=== PATIENT | female | born 1990 | race Caucasian/White ===

== ENCOUNTER 2016-09-05 11:04 | Outpatient (CLI) | payer BC | END 2016-09-05 11:05 | disposition home or self-care (01) | DX: R42 Dizziness and giddiness (principal); R55 Syncope and collapse ==

== ENCOUNTER 2016-11-17 15:08 | Emergency (ER) | payer BC ==
[2016-11-17 15:42] LABS: RAPID STREP SCREEN REAGENT QC YELLOW (YELLOW)
--- NOTE | 2016-11-17 15:56 | XRAY Preliminary Report ---
Exam: XR Chest 2 View PA/LAT IMPRESSION: Normal 2-view chest radiography. [facility] SITE ID: [id number]
--- NOTE | 2016-11-17 15:59 | XRAY Report ---
EXAM: CHEST RADIOGRAPHY EXAM DATE: 11/17/2016 03:42 PM. CLINICAL HISTORY: Cough with dyspnea. COMPARISON: None. TECHNIQUE: 2 views. FINDINGS: Lungs/Pleura: No focal opacities evident. No pleural effusion. No pneumothorax. Normal volumes. Mediastinum: Heart and mediastinal contours are unremarkable. Other: None. IMPRESSION: Normal 2-view chest radiography. [facility] Referring Provider Line: [phone] SITE ID: [id number]
[2016-11-17 16:14] LABS: BILIRUBIN,URINE NEGATIVE (NEGATIVE); UA CHARGE (STRIP ONLY) YES; UR CULTURE IF IND NOT INDICATED
[2016-11-17 16:17] LABS: HCG UR QUAL NEGATIVE
--- NOTE | 2016-11-17 16:21 | ED Physician Documentation ---
PD HPI DYSPNEA - Stated complaint Stated Complaint: SOA - Chief complaint Chief Complaint: Resp - History obtained from History obtained from: Patient, Family (Father) - History of Present Illness Associated symptoms: Cough - Additional information Additional information: The patient is a 26-year-old female who reports sore throat for the past 3 days , with associated cough. Today she was having difficulty breathing at work and so was sent home. She is brought to the emergency department now by her father because of difficulty breathing with associated shortness of breath. She has a history of similar symptoms in the past, diagnosed as pneumonia. She does not smoke cigarettes. 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 Review of Systems Constitutional: denies: Fever Ears: denies: Tinnitus/ringing Nose: reports: Congestion Throat: reports: Sore throat Cardiac: denies: Chest pain / pressure Respiratory: reports: Dyspnea, Cough GI: denies: Abdominal Pain, Nausea, Vomiting : denies: Dysuria Skin: denies: Rash Musculoskeletal: denies: Back pain, Extremity swelling Neurologic: reports: Numbness (Tingling in fingers and around lips.). denies: Focal weakness, Headache PD PAST MEDICAL HISTORY - Past Medical History Past Medical History: Yes Cardiovascular: None Neuro: Other (Pseudoseizures) Endocrine/Autoimmune: None Psych: Bipolar disorder Other Past Medical History: pseudoseizures, last in july - Past Surgical History Past Surgical History: Yes General: Cholecystectomy HEENT: Rhinoplasty - Present Medications Home Medications: Ambulatory Orders Medication Instructions Recorded Confirmed Azithromycin [Zithromax] 250 mg PO DAILY #6 tablet 08/18/15 HYDROcod/ACETAM 5/325 [[place] 5/325] 1 - 2 ea PO Q6H PRN #15 tablet 08/18/15 - Allergies Allergies/Adverse Reactions: Allergies Allergy/AdvReac Type Severity Reaction Status Date / Time Sulfa (Sulfonamide Allergy Anaphylaxis Verified 08/18/15 14:32 Antibiotics) - Social History Does the pt smoke?: No Smoking Status: Former smoker Does the pt drink ETOH?: No Does the pt have substance abuse?: No - Immunizations Immunizations are current?: Yes - POLST Patient has POLST: No PD ED PE NORMAL - Vitals Vital signs reviewed: Yes (Normal) - General General: Alert and oriented X 3, Well developed/nourished, Other (Initially slumped over in a wheelchair and not verbalizing when asked questions.) - HEENT HEENT: Atraumatic, PERRL, EOMI, Ears normal, Pharynx benign - Neck Neck: Supple, no meningeal sign, No adenopathy, No JVD - Cardiac Cardiac: RRR, No murmur - Respiratory Respiratory: Other (Upper airway transmitted noise.) - Abdomen Abdomen: Soft, Non tender - Extremities Extremities: No edema, No calf tenderness / cord - Neuro Neuro: Alert and oriented X 3, No motor deficit Results - Vitals Vitals: Oxygen O2 Source Room air - Labs Labs: Microbiology 11/17/16 15:20 Group A Strep Throat Culture - Final Throat Laboratory Tests 11/17/16 11/17/16 15:20 16:08 Urine Color LIGHT YELLOW Urine Clarity CLEAR Urine pH 7.0 Ur Specific [place] <=1.005 Urine Protein NEGATIVE Urine Glucose (UA) NEGATIVE Urine Ketones NEGATIVE Urine Occult Blood NEGATIVE Urine Nitrite NEGATIVE Urine Bilirubin NEGATIVE Urine Urobilinogen 0.2 (NORMAL) Ur Leukocyte Esterase NEGATIVE Ur Microscopic Review NOT INDICATED Urine Culture Comments NOT INDICATED Urine HCG, Qual NEGATIVE Group A Strep Rapid Negative - Rads (name of study) CXR Radiology: Prelim report reviewed, EMP read contemporaneously, See rad report ( Normal 2 view chest radiography.) PD MEDICAL DECISION MAKING - ED course Complexity details: reviewed old records, reviewed results, re-evaluated patient , considered differential, d/w patient, d/w family ED course: The patient's presentation is most consistent with viral pharyngitis and hypoventilation syndrome. Her chest x-ray reveals no cardiopulmonary abnormality. Strep screen is negative. Urinalysis and urine test are negative. Treatment in the emergency department included administration of dexamethasone 10 mg orally. During her time in the emergency department the patient became more comfortable, without respiratory distress.The tingling in her fingers and around her lips totally resolved. I discussed with her and her father the diagnosis, expected course of illness, symptomatic treatment and outpatient follow-up, as well as potentially worrisome signs or symptoms that should prompt reevaluation in the emergency department. Departure - Departure Disposition: 01 Home, Self Care Clinical Impression: Hyperventilation syndrome, Viral pharyngitis Condition: Stable Instructions: ED Pharyngitis Viral, ED Hyperventilation Syndrome Follow-Up: Niecy Jarquin PA-C [Primary Care Provider] - Comments: Drink plenty of fluids, and gargle with cool liquids. Use Tylenol or ibuprofen as needed for fever or discomfort. Follow up with your primary physician within one to 2 weeks. Call to schedule an appointment. Return to the emergency department if you develop increasing difficulty breathing, or otherwise worsening symptoms. Forms: Activity restrictions Discharge Date/Time: 11/17/16 16:44
[2016-11-17] MEDS ORDERED: DEXAMETHASONE 10 MG/ML VIAL PO STA (16:29)
[2016-11-17] MEDS ORDERED: CHERRY SYRUP 10 ML UDC PO ONE (16:34)
[2016-11-17] MEDS ORDERED: DEXAMETHASONE 10 MG/ML VIAL ONE (16:34)
[2016-11-17 16:41] VITALS: BP 107/53
--- NOTE | 2016-11-26 10:23 | ED Physician Documentation ---
ED Addendum - Addendum Addendum: 11/26/16 10:22 This addendum is to clarify the diagnosis. The patient's diagnosis should read hypoventilation syndrome.
== END 2016-11-17 16:44 | disposition home or self-care (01) ==
LOC: ED 15:08
DX: R06.89 Other abnormalities of breathing (principal); Z87.891 Personal history of nicotine dependence
CPT/HCPCS: 71020; 81003; 81025; 87070; 87430; 99283; 99284; A9270; 81001; 87086

== ENCOUNTER 2017-02-19 12:41 | Outpatient (CLI) | payer BC ==
[2017-02-19 18:36] LABS: BASOPHILS % (AUTO) 0.4 %; EOSINOPHILS # (AUTO) 0.1 10^3/uL (0.0-0.7); EOSINOPHILS % (AUTO) 1.9 %; HGB - HEMOGLOBIN 13.8 g/dL (12.0-16.0); LYMPHOCYTES # (AUTO) 1.6 10^3/uL (1.5-3.5); LYMPHOCYTES % (AUTO) 24.9 %; MEAN CORPUSCULAR HEMOGLOBIN 29.5 pg (27.0-31.0); MEAN CORPUSCULAR HGB CONC 33.7 g/dL (32.0-36.0); MEAN CORPUSCULAR VOLUME 87.6 fL (81.0-99.0); MEAN PLATELET VOLUME 9.2 fL (7.9-10.8); MONOCYTES # (AUTO) 0.4 10^3/uL (0.0-1.0); MONOCYTES % (AUTO) 6.5 %; NEUTROPHILS # (AUTO) 4.3 10^3/uL (1.5-6.6); NEUTROPHILS % (AUTO) 66.3 %; NUCLEATED RED BLOOD CELLS AUTO 0.1 /100WBC; RED BLOOD COUNT 4.68 10^6/uL (4.20-5.40); RED CELL DISTRIBUTION WIDTH 13.3 % (12.0-15.0); UNCORRECTED WHITE BLOOD COUNT 6.5 x10^3/uL; WHITE BLOOD COUNT 6.5 x10^3/uL (4.8-10.8)
[2017-02-19 18:48] LABS: PT - PROTHROMBIN TIME 11.8 secs (9.9-12.6)
[2017-02-19 18:58] LABS: ALBUMIN/GLOBULIN RATIO 1.9 (1.0-2.2); BILIRUBIN,TOTAL 0.8 mg/dL (0.2-1.0); CALCIUM 9.1 mg/dL (8.5-10.3); CREATININE 0.8 mg/dL (0.4-1.0); TOTAL PROTEIN 6.9 g/dL (6.7-8.2)
== END 2017-02-19 12:42 | disposition home or self-care (01) ==
LOC: LAB.F 12:41
PROVIDERS: ATTEND Physician Assistant
DX: R04.0 Epistaxis (principal)
CPT/HCPCS: 36415; 80053; 85025; 85610

== ENCOUNTER 2021-02-10 09:12 | Emergency (ER) | payer BC, MEDICAID, OTHER ==
--- NOTE | 2021-02-10 09:58 | ED Physician Documentation ---
PD HPI URI - Stated complaint Stated Complaint: SINUS PX - Chief complaint Chief Complaint: Heent - History obtained from History obtained from: Patient - History of Present Illness Timing - onset: How many weeks ago (1.5) Timing duration: Weeks Timing details: Gradual onset Associated symptoms: Fever (<100; normal this am), Ear pain, Nasal congestion, Rhinorrhea (green-yellow mucus with blood this am), Sinus pain, Sore throat, Productive cough. No: Hemoptysis Recently seen: Other (Tested neg Covid at [facility] this week) - Additional information Additional information: This is a 30-year-old woman who presents with complaints with about a week and a half ago she started with some cold-like symptoms and now was progressed to the point that she has some sinus congestion and pressure along with green-yellow mucus for the past week and it was bloody this morning. She has a sore throat at a rate of 4 out of 10. Temperatures been less than 100 this morning was 98.6. She did go on to get tested for Covid at [facility] and it was negative. She is coughing now also bringing up some mucus but denies any pleuritic type chest pain. She is had no vomiting and denies . She does note a lump in the right side of her neck that is been there for about 2 years off and on. At times it is a little bit painful and slightly painful now. Patient does not smoke. She is currently staying here on the [place] to help her mother recover from knee surgery. She is normally a resident in [place]. Review of Systems Constitutional: reports: Fever Ears: reports: Ear pain Nose: reports: Rhinorrhea / runny nose, Congestion, Sinus pressure / pain Throat: reports: Sore throat Respiratory: reports: Cough GI: denies: Vomiting : denies: Now EGA PD PAST MEDICAL HISTORY - Past Medical History Past Medical History: Yes Cardiovascular: None Endocrine/Autoimmune: None Psych: Bipolar disorder - Past Surgical History Past Surgical History: Yes General: Cholecystectomy HEENT: Rhinoplasty - Present Medications Home Medications: Ambulatory Orders Medication Instructions Recorded Confirmed Azithromycin [Zithromax] 0 mg PO DAILY #6 tablet 02/10/21 Benzonatate [Tessalon] 100 mg PO TID PRN #30 cap 02/10/21 - Allergies Allergies/Adverse Reactions: Allergies Allergy/AdvReac Type Severity Reaction Status Date / Time Sulfa (Sulfonamide Allergy Anaphylaxis Verified 02/10/21 09:30 Antibiotics) - Social History Does the pt smoke?: No Smoking Status: Never smoker Does the pt drink ETOH?: No Does the pt have substance abuse?: No - Immunizations Immunizations are current?: Yes - POLST Patient has POLST: No PD ED PE NORMAL - Vitals Vital signs reviewed: Yes - General General: Alert and oriented X 3, No acute distress, Well developed/nourished - HEENT HEENT: Atraumatic, PERRL, EOMI, Moist mucous membranes, Pharynx benign (no exudate), Other (Left TM is retracted. Nasal mucosa is boggy.) - Neck Neck: Supple, no meningeal sign, Other (There is a palpable mass in the right anterior cervical chain upper aspect that is most likely a lymph node. It is a little tender at this time. Size is approximately 1 x 1.5 cm. 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 Will call in prescriptions for amoxicillin and Tessalon. Use ibuprofen [id number] for fever and aches and pains. Follow-up with a primary care provider regarding the right neck lymph node. At this point is not of a size that I feel is concerning for acute work-up. Departure - Departure Disposition: 01 Home, Self Care Clinical Impression: Sinusitis Condition: Good Instructions: ED Sinusitis Abx Tx Follow-Up: [facility] [Provider Group] Prescriptions: Benzonatate [Tessalon] 100 mg PO TID PRN #30 cap PRN Reason: Cough Azithromycin [Zithromax] 0 mg PO DAILY #6 tablet Comments: Take ibuprofen as needed for aches and fever. Steam may help open up your sinuses and allow this to drain better. Consider using an sinus rinse kit or [place] pot. Prescription for Zithromax antibiotic and Tessalon cough medication has been sent to [facility] Follow-up with a primary care provider regarding the mass in the right neck and need for any further follow-up.
[2021-02-10 10:37] VITALS: BP 104/75
== END 2021-02-10 10:37 | disposition home or self-care (01) ==
LOC: ED 09:12
DX: J32.9 Chronic sinusitis, unspecified (principal); R59.0 Localized enlarged lymph nodes
CPT/HCPCS: 99282; 99283